=== PATIENT | female | born 1955 | race Caucasian/White ===

== ENCOUNTER 2021-10-26 14:19 | Emergency (ER) | payer MEDICARE ==
[~2021-10-26] VITALS: Ht 152.4 cm; Wt 90.7 kg
[2021-10-26] MEDS ORDERED: DICL20GE TP (16:18)
[2021-10-26] MEDS ORDERED: HYDROCODONE/ACETAMINOPHEN 10/325 MG TAB PO ONE (16:30)
[2021-10-26 16:41] VITALS: BP 132/66
== END 2021-10-26 16:55 | disposition home or self-care (01) ==
LOC: EDH 14:19
DX: M17.11 Unilateral primary osteoarthritis, right knee (principal); E11.9 Type 2 diabetes mellitus without complications; E78.00 Pure hypercholesterolemia, unspecified; I11.9 Hypertensive heart disease without heart failure; F41.9 Anxiety disorder, unspecified; F32.A Depression, unspecified
CPT/HCPCS: 73562; 73564